=== PATIENT | male | born 1985 | race Caucasian/White ===

== ENCOUNTER 2019-12-03 12:33 | Emergency (ER) | payer OTHER ==
[~2019-12-03] VITALS: Ht 188 cm; Wt 95.3 kg
[2019-12-03] MEDS ORDERED: APAP W/CODEINE1 TA2 PO (13:30)
[2019-12-03] MEDS ORDERED: AMOXICILLIN 50500 MG PO (13:30)
[2019-12-03] MEDS ORDERED: MEDROLDOSEPACK PO (13:41)
[2019-12-03 14:03] VITALS: BP 142/94
== END 2019-12-03 14:04 | disposition home or self-care (01) ==
LOC: M.ERS 12:33
DX: J02.0 Streptococcal pharyngitis (principal); Z20.828 Contact with and (suspected) exposure to other viral communicable diseases